=== PATIENT | male | born 1965 | race Caucasian/White ===

== ENCOUNTER 2023-02-25 07:21 | Outpatient (CLI) | payer OTHER ==
[2023-02-25 23:30] LABS: Free T4 (Free Thyroxine) 0.71 ng/dL (0.70-1.48)
== END 2023-02-25 07:22 | disposition home or self-care (01) ==
LOC: MADLAB 07:21
PROVIDERS: ATTEND Chiropractor
DX: E07.9 Disorder of thyroid, unspecified (principal); M13.821 Other specified arthritis, right elbow; M13.822 Other specified arthritis, left elbow; M13.842 Other specified arthritis, left hand; M77.11 Lateral epicondylitis, right elbow
CPT/HCPCS: 36415; 84439; 84481